=== PATIENT | male | born 1990 | race Caucasian/White ===

== ENCOUNTER 2018-11-11 16:23 | Outpatient (CLI) | payer BC, OTHER ==
--- NOTE | 2018-11-11 16:39 | RAD ---
EXAM: Two views chest PROVIDED CLINICAL HISTORY: Cough and wheezing for 5 1/2 weeks. COMPARISON: 07/26/2012 FINDINGS: Cardiac silhouette and pulmonary vasculature are within normal limits. There is a linear density at the left lung base likely related to superimposition of ribs and overlying vasculature. The lungs appear clear. The osseous structures have a normal appearance. No significant interval change from pr ior exam. IMPRESSION: No acute cardiopulmonary process.
== END 2018-11-11 16:24 | disposition home or self-care (01) ==
LOC: BICRAD 16:23
PROVIDERS: ATTEND Family Medicine
DX: R06.2 Wheezing (principal)
CPT/HCPCS: 71046

== ENCOUNTER 2022-11-16 10:00 | Outpatient (CLI) | payer BC | END 2022-11-16 10:01 | disposition home or self-care (01) | LOC: SCSRAD 10:00 | PROVIDERS: ATTEND Family Medicine | DX: R05.1 Acute cough (principal) | CPT/HCPCS: 71046 ==

== ENCOUNTER 2024-06-02 11:26 | Outpatient (CLI) | payer BC, OTHER | END 2024-06-02 11:27 | disposition home or self-care (01) | LOC: SCSRAD 11:26 | PROVIDERS: ATTEND Nurse Practitioner Family | DX: S99.911A Unspecified injury of right ankle, initial encounter (principal) ==